=== PATIENT | female | born 1940 | race Caucasian/White ===

== ENCOUNTER 2020-04-03 07:15 | Day surgery (SDC) | payer MEDICARE, BC ==
[~2020-04-03 07:15] MED LIST: Lactated Ringers 1,000 ML IV SCH
[2020-04-03] MEDS ORDERED: Propofol 200 MG/20 ML SDV ONE ×3 (08:29→09:54)
[2020-04-03 10:24] VITALS: BP 101/80; PULSE 65
--- NOTE | 2020-04-03 11:03 | OR ---
PREOPERATIVE DIAGNOSIS: History of colon polyps. POSTOPERATIVE DIAGNOSIS: Multiple colon polyps. PROCEDURE PERFORMED: Total flexible colonoscopy with biopsies. ANESTHESIA: MAC anesthesia. COMPLICATIONS: None apparent. BLOOD LOSS: Minimal. FINDINGS: 1. Ascending colon polyps x4, 2 mm, cold forceps. 2. Hepatic flexure polyp, 2 mm, cold forceps. 3. Transverse colon polyp, 2 mm, cold forceps. 4. Sigmoid colon polyps x5, 2-4 mm, hot snare and cold forceps. START TIME: 0920. CECUM TIME: 0930. STOP TIME: 0959. BOWEL PREP: [place] class 3. INDICATIONS FOR PROCEDURE: Ms. Cerda is a 79-year-old female who has a history of colon polyps. Her last colonoscopy was 5 years ago. She is here for a screening colonoscopy. She denies bloody and dark black stools, and change in bowel habits. No family history of colorectal cancer. DETAILS OF PROCEDURE: After informed consent was obtained, the patient was placed in left lateral decubitus position. MAC anesthesia was induced by Anesthesia colleagues. The colonoscope was introduced into the rectum and advanced all the way to the cecum. The appendiceal orifice was photographed. The terminal ileum was intubated and photographed. The colonoscope was then slowly withdrawn. No pathology was identified except for what is mentioned in the above findings section. A retroflexed view was obtained and the colonoscope was removed. The patient was awoken from MAC anesthesia by Anesthesia colleagues without incident. PATHOLOGY: A) Colon, ascending polyp Fragments of tubular adenoma(s) Fragment of hyperplastic polyp B) Colon, hepatic flexure polyp Tubular adenoma C) Colon, transverse polyp Tubular adenoma D) Colon, sigmoid polyp Tubular adenomata (x4) Hyperplastic polyp (x1) Normally would recommend repeat screening colonoscopy in 3 years. Given age of 79 I recommend patient discuss benefits of another screening colonoscopy in 3 years. RKM: 04/03/2020 10:05:55 MODL: 04/03/2020 10:36:25 /[id number] MEMO
--- NOTE | 2020-04-13 08:18 | LETTER ---
04/10/2020 Laz Cerda [address] [place] [address] [address] [place] [address] RE: LAZ CERDA : 1940 Dear Ms. Cerda: I am writing to inform you of the pathology results from your recent colonoscopy. 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 A tubular adenoma is a polyp which does not contain cancer but it can become cancer, which is why we removed them. Due to the number of tubular adenomas, you will need a repeat screening colonoscopy in 3 years. Normally, we would discontinue screening for colon cancer at age 80. You did have quite a few polyps and so you should discuss the benefits of one more screening colonoscopy with your primary care provider. If you have any questions about this, please give me a call at the [facility] [place]. The number is [phone] and ask for the surgery nurses. Warmest regards,
== END 2020-04-03 11:14 | disposition home or self-care (01) ==
LOC: VM.SDS 07:15
PROVIDERS: ATTEND Student in an Organized Health Care Education/Training Program
DX: D12.2 Benign neoplasm of ascending colon (principal); D12.3 Benign neoplasm of transverse colon; D12.5 Benign neoplasm of sigmoid colon; I10 Essential (primary) hypertension; J45.20 Mild intermittent asthma, uncomplicated; E66.9 Obesity, unspecified; E78.5 Hyperlipidemia, unspecified; Z01.812 Encounter for preprocedural laboratory examination; Z20.828 Contact with and (suspected) exposure to other viral communicable diseases; E87.6 Hypokalemia; Z79.899 Other long term (current) drug therapy; Z98.890 Other specified postprocedural states; Z68.34 Body mass index [BMI] 34.0-34.9, adult
CPT/HCPCS: 00812; 45380; 45385; J2704; J7120; U0002; 88305

== ENCOUNTER 2022-03-25 22:25 | Emergency (ER) | payer MEDICARE, BC ==
[2022-03-25] MEDS: Albuterol/Ipratropium 3.0-0.5 MG/3 ML Neb Soln NEB ONE (22:59)
[2022-03-25 23:21] LABS: ANION GAP 8.8 mmol/L (5-15); CHLORIDE,CL 101 mmol/L (98-107); ESTIMATED GFR 74 mL/min (>=60); SODIUM,NA 138 mmol/L (136-145)
[2022-03-25] MEDS: Albuterol 0.083% 2.5 MG/3 ML Neb Soln NEB ONE (23:54)
[2022-03-26 01:43] VITALS: BP 119/63; PULSE 73
== END 2022-03-25 23:57 | disposition home or self-care (01) ==
LOC: VM.ED 22:25
DX: J45.21 Mild intermittent asthma with (acute) exacerbation (principal); E78.00 Pure hypercholesterolemia, unspecified; I10 Essential (primary) hypertension; E66.9 Obesity, unspecified; Z68.34 Body mass index [BMI] 34.0-34.9, adult; Z91.048 Other nonmedicinal substance allergy status; Z91.040 Latex allergy status; Z79.899 Other long term (current) drug therapy
CPT/HCPCS: 36415; 71046; 80053; 85025; 94640; 99285; J7613-GY; J7620-GY

== ENCOUNTER 2023-02-17 06:44 | Day surgery (SDC) | payer MEDICARE, BC ==
[2023-02-17] MEDS ORDERED: Lactated Ringers 1,000 ML IV SCH (07:00)
[2023-02-17] MEDS ORDERED: fentaNYL 100 MCG/2 ML SDV ONE (08:29)
[2023-02-17] MEDS ORDERED: Propofol 200 MG/20 ML SDV ONE ×2 (08:29→09:07)
[2023-02-17 11:30] VITALS: BP 112/55; PULSE 69
== END 2023-02-17 10:55 | disposition home or self-care (01) ==
LOC: VM.SDS 06:44
PROVIDERS: ATTEND Student in an Organized Health Care Education/Training Program
DX: Z12.11 Encounter for screening for malignant neoplasm of colon (principal); D12.2 Benign neoplasm of ascending colon; D12.3 Benign neoplasm of transverse colon; E78.00 Pure hypercholesterolemia, unspecified; I10 Essential (primary) hypertension; M81.0 Age-related osteoporosis without current pathological fracture; J45.909 Unspecified asthma, uncomplicated; E78.2 Mixed hyperlipidemia; K21.9 Gastro-esophageal reflux disease without esophagitis; K64.9 Unspecified hemorrhoids; E87.6 Hypokalemia; J45.20 Mild intermittent asthma, uncomplicated; K44.9 Diaphragmatic hernia without obstruction or gangrene; E66.9 Obesity, unspecified; Z79.899 Other long term (current) drug therapy; Z91.040 Latex allergy status; Z88.8 Allergy status to other drugs, medicaments and biological substances; Z91.048 Other nonmedicinal substance allergy status; Z68.35 Body mass index [BMI] 35.0-35.9, adult
CPT/HCPCS: 00811; 45385; J2704; J3010; J7120; 88305

== ENCOUNTER 2023-09-09 12:06 | Emergency (ER) | payer MEDICARE, BC ==
[2023-09-09 13:37] LABS: APPEARANCE,URINE CLEAR (CLEAR); BILIRUBIN,URINE NEGATIVE (NEGATIVE); COLOR,URINE YELLOW (YELLOW); GLUCOSE,URINE NEGATIVE (NEGATIVE); KETONES,URINE TRACE mg/dL (NEGATIVE); LEUKOCYTE ESTERASE,URINE NEGATIVE (NEGATIVE); NITRITE,URINE NEGATIVE (NEGATIVE); OCCULT BLOOD,URINE NEGATIVE (NEGATIVE); PH,URINE 6.5 (5.0-8.0); PROTEIN,URINE NEGATIVE (NEGATIVE); UROBILINOGEN,URINE 0.2 EU/dL (0.2)
[2023-09-09 13:44] LABS: BASOPHILS PERCENT AUTO 0.2 % (0.2-1.2); EOSINOPHILS ABSOLUTE AUTO 0.1 x10^3/uL (0.0-0.5); EOSINOPHILS PERCENT AUTO 0.9 % (0.0-4.0); HEMATOCRIT 44.4 % (33.0-47.0); HEMOGLOBIN 15.1 g/dL (12.0-16.0); IMMATURE GRAN ABSOLUTE AUTO 0.01 x10^3/uL (0.00-0.07); LYMPHOCYTES ABSOLUTE AUTO 1.6 x10^3/uL (1.0-4.8); LYMPHOCYTES PERCENT AUTO 19.5 % (25.0-50.0); MEAN CORPUSCULAR HEMOGLOBIN 30.8 pg (26.0-32.0); MEAN CORPUSCULAR VOLUME 90.6 fL (78.0-93.0); MONOCYTES ABSOLUTE AUTO 0.7 x10^3/uL (0.0-0.8); MONOCYTES PERCENT AUTO 8.9 % (2.0-11.0); NEUTROPHILS ABSOLUTE AUTO 5.7 x10^3/uL (1.8-7.7); NEUTROPHILS PERCENT AUTO 70.4 % (50.0-80.0); PLATELET COUNT,PLT 260 x10^3/uL (130-400); WHITE BLOOD CELL COUNT,WBC 8.1 x10^3/uL (4.0-10.0)
[2023-09-09 13:57] LABS: AMORPHOUS SEDIMENT,URINE RARE; BACTERIA,URINE NOT SEEN /HPF (NOT SEEN); MUCUS,URINE NOT SEEN /LPF (NOT SEEN); RBC,URINE NOT SEEN /HPF (NOT SEEN); SQUAMOUS EPITHELIAL CELLS,UR RARE /HPF (NOT SEEN); WBC,URINE NOT SEEN /HPF (NOT SEEN)
[2023-09-09] MEDS: Sodium Phosphate,Monobasic/Sodium Phosphate,Dibasic Enema 133 ML Bottle RECTAL ONE (14:00)
[2023-09-09 14:11] LABS: A/G RATIO 1.05; ALBUMIN 3.9 g/dL (3.4-5.0); BILIRUBIN TOTAL 0.6 mg/dL (0.2-1.0); CALCIUM 9.3 mg/dL (8.5-10.1); CREATININE 0.8 mg/dL (0.55-1.02); EST CRCL DRUG DOSING (CG) 38.94 mL/min; POTASSIUM,K 3.2 mmol/L (3.5-5.1); PROTEIN TOTAL,TP 7.6 g/dL (6.4-8.2)
[2023-09-09 14:17] LABS: ANION GAP 12.2 mmol/L (5-15)
[2023-09-09 17:39] VITALS: BP 120/62; PULSE 72
== END 2023-09-09 15:45 | disposition home or self-care (01) ==
LOC: VM.ED 12:06
DX: K64.4 Residual hemorrhoidal skin tags (principal); K59.00 Constipation, unspecified; R51.9 Headache, unspecified; R41.3 Other amnesia; E78.00 Pure hypercholesterolemia, unspecified; I10 Essential (primary) hypertension; J45.909 Unspecified asthma, uncomplicated; E66.9 Obesity, unspecified; Z91.048 Other nonmedicinal substance allergy status; Z91.040 Latex allergy status; Z88.8 Allergy status to other drugs, medicaments and biological substances; Z79.899 Other long term (current) drug therapy; Z79.51 Long term (current) use of inhaled steroids; Z68.34 Body mass index [BMI] 34.0-34.9, adult
CPT/HCPCS: 36415; 70450; 80053; 81001; 85025; 93005; 99284; A9270; 93010

== ENCOUNTER 2024-05-16 06:10 | Emergency (ER) | payer MEDICARE, BC ==
[2024-05-16 07:16] LABS: BASOPHILS PERCENT AUTO 0.8 % (0.2-1.2); EOSINOPHILS ABSOLUTE AUTO 0.1 x10^3/uL (0.0-0.5); EOSINOPHILS PERCENT AUTO 2.4 % (0.0-4.0); HEMATOCRIT 42.9 % (33.0-47.0); HEMOGLOBIN 14.6 g/dL (12.0-16.0); LYMPHOCYTES ABSOLUTE AUTO 1.3 x10^3/uL (1.0-4.8); LYMPHOCYTES PERCENT AUTO 25.9 % (25.0-50.0); MEAN CORPUSCULAR HEMOGLOBIN 30.8 pg (26.0-32.0); MEAN CORPUSCULAR VOLUME 90.5 fL (78.0-93.0); MONOCYTES ABSOLUTE AUTO 0.7 x10^3/uL (0.0-0.8); MONOCYTES PERCENT AUTO 14.3 % (2.0-11.0); NEUTROPHILS ABSOLUTE AUTO 2.8 x10^3/uL (1.8-7.7); NEUTROPHILS PERCENT AUTO 56.6 % (50.0-80.0); PLATELET COUNT,PLT 212 x10^3/uL (130-400); RED BLOOD CELL COUNT 4.74 x10^6/uL (4.00-5.50)
[2024-05-16 07:36] LABS: A/G RATIO 1.03; ALBUMIN 3.4 g/dL (3.4-5.0); BILIRUBIN TOTAL 0.5 mg/dL (0.2-1.0); CALCIUM 9.1 mg/dL (8.5-10.1); EST CRCL DRUG DOSING (CG) 30.62 mL/min; POTASSIUM,K 3.4 mmol/L (3.5-5.1); PROTEIN TOTAL,TP 6.7 g/dL (6.4-8.2)
[2024-05-16 07:38] LABS: ANION GAP 8.4 mmol/L (5-15)
[2024-05-16 08:00] VITALS: BP 117/52; PULSE 61
== END 2024-05-16 08:18 | disposition home or self-care (01) ==
LOC: VM.ED 06:10
DX: R42 Dizziness and giddiness (principal); I10 Essential (primary) hypertension; J45.909 Unspecified asthma, uncomplicated; E66.9 Obesity, unspecified; Z68.32 Body mass index [BMI] 32.0-32.9, adult; Z96.659 Presence of unspecified artificial knee joint; Z88.8 Allergy status to other drugs, medicaments and biological substances; Z91.040 Latex allergy status; Z91.048 Other nonmedicinal substance allergy status; Z79.51 Long term (current) use of inhaled steroids; Z79.899 Other long term (current) drug therapy
CPT/HCPCS: 36415; 80053; 85025; 99284